=== PATIENT | male | born 1955 | race Caucasian/White ===

== ENCOUNTER → 2017-07-18 12:20 | Outpatient (CLI) | payer MEDICAID | END | disposition home or self-care (01) | LOC: D.CT 12:20 | DX: R10.30 Lower abdominal pain, unspecified (principal) ==

== ENCOUNTER → 2017-08-06 12:02 | Outpatient (CLI) | payer MEDICAID ==
[~2017-08-06 12:02] MED LIST: BAYER CHEWABLE81 MG PO; BENZTROPINE MESY2 MG PO; ELIQUIS5 MG PO; LEVEMIR100 U/M1 SC; MINIPRESS2 MG PO; ZOCOR20 MG PO
--- NOTE | 2017-08-15 12:47 | EC ---
PATIENT:TOBI STEWART DATE OF SERVICE: 08/06/17 SEX: M MEDICAL RECORD: [id number] DATE OF : 53 [facility] AGE OF PATIENT: 61 ADMISSION DATE: 08/06/17 REFERRING PHYSICIAN: INTERPRETING PHYSICIAN: BING ARORA MD ECHOCARDIOGRAM REPORT ECHO CHARGES 4 ECHO COMPLETE CLINICAL DIAGNOSIS: CAD/CHEST PAIN/PVD HX OF CAD/CABG ECHOCARDIOGRAPHIC MEASUREMENTS (adult normal given) AC root (d.<3.7cm) 3.5 cm LV Septum d (<1.2 cm> 1.1 cm Valve Excursion 1.2 cm LV Septum (systole) 1.3 cm Left Atria (s.<4.0cm> 3.8 cm LVPW d(<1.2cm) 1.1 cm RV (d.<2.3cm) 3.9 cm LVPW (sytole) 1.4 cm LV diastole(<5.6CM) 6.3 cm MV E-F(>70mm/sec) cm LV systole 4.6 cm LVOT Diameter 1.5 cm MV exc.(>10mm) 1.4 cm Est.ejection fraction (50-75%) % Pericardial Effusion N DOPPLER: LVIT cm/sec A 65.0 cm/sec E 79.0 cm/sec LA cm/sec RVSP 25 mmHg LVOT 94 cm/sec AOP1/2T m/s Asc. Ao 153 cm/sec RVOT 75 cm/sec RA cm/sec PA 102 cm/sec AV Gradient Peak 9.41 mmHg AV Mean 4.93 mmHg AV Area 1.5 cm MV Gradient Peak 2.99 mmHg MV Mean 1.32 mmHg MV Area cm COMMENTS: Criminal Lawyer: Judy FOX Management Advisor: 4 Dr. Arora TAPE# PACS DATE OF SERVICE: 08/06/2017 PROCEDURE: Transthoracic echocardiogram. FINDINGS: 1. Left ventricle shows evidence of mild concentric left ventricular hypertrophy with preserved LV systolic function. The inflow characteristics are normal. There are no significant regional wall motion abnormalities. 2. The mitral valve has mild mitral regurgitation. 3. The left atrium shown to be normal size, normal function. ECHOCARDIOGRAM REPORT [id number] TOBI STEWART 4. The aortic valve shows evidence of sclerosis without stenosis. 5. The tricuspid valve has mild tricuspid regurgitation with normal right ventricular systolic pressures. 6. The right atrium is normal size to mildly dilated, but normal function. 7. The right ventricle is mild to moderately enlarged. 8. The pulmonic valve is normal. 9. The pericardium is normal. No pericardial effusion. 10. The IVC is shown to be normal size and collapses appropriately indicating normal central venous pressure. TRANSINT:[id number] Voice Confirmation ID: [id number] DOCUMENT ID: [id number] BING ARORA MD at 1247 CC: [id number] DICTATION DATE: 08/06/17 1640 LIGHTNING ROD INSTALLER: 08/06/17 2228 DEP CLI 08/06/17 [facility] [address] [place] [address]
[2017-09-18 06:37] VITALS: BMI 21.4
== END | disposition home or self-care (01) ==
LOC: D.ECHO 12:02
DX: I65.23 Occlusion and stenosis of bilateral carotid arteries (principal)

== ENCOUNTER → 2017-08-12 07:18 | Outpatient (CLI) | payer MEDICAID ==
--- NOTE | 2017-08-15 12:47 | ST ---
PATIENT:TOBI STEWART MEDICAL RECORD: [id number] SEX: M LOCATION:[facility] ORDER #: ADMISSION DATE: 08/12/17 AGE OF PATIENT: 61 REFERRING PHYSICIAN: INTERPRETING PHYSICIAN: BING ARORA MD DATE OF SERVICE: 08/12/2017 PROCEDURE: Lexiscan stress test. PROCEDURE IN DETAIL: The patient was brought into the nuclear medicine department in a stable position, placed in the supine position on the nuclear table. The patient then had a standard Lexiscan injected. The patient tolerated the procedure without any specific complications or complaints. The patient had 12 mCi of sestamibi injected at rest and 31.9 mCi sestamibi injected at stress per usual protocol. The SPECT and gated images were reviewed and interpretable. The gated images showed complex wall motion abnormalities with an ejection fraction of 37%. The SPECT images showed inferior and lateral partially reversible ischemia that is moderate to severe in distribution and intensity. IMPRESSION: The patient has evidence of ischemic cardiomyopathy with a prior infarction that has partial reversibility, especially in the lateral component and a mostly fixed defect in the inferior component, angiography maybe helpful. TRANSINT:[id number] Voice Confirmation ID: [id number] DOCUMENT ID: [id number] BING ARORA MD at 1247 CC: [id number] DICTATION DATE: 08/13/17 1222 CRIMINAL JUDGE: 08/13/17 1229 DEP CLI 08/12/17 [facility] [address] [place] [address]
[2017-09-18 06:37] VITALS: BMI 21.4
== END | disposition home or self-care (01) ==
LOC: D.NM 07:18
DX: R07.9 Chest pain, unspecified (principal)

== ENCOUNTER → 2017-08-19 17:06 | Outpatient (CLI) | payer MEDICAID ==
[2017-08-19 18:51] LABS: CHOL - HDL RATIO 2.7 ratio (2.3-4.9); LDL-HDL RATIO 1.6 ratio (1.5-3.5)
[2017-09-18 06:37] VITALS: BMI 21.4
== END | disposition home or self-care (01) ==
LOC: D.LABREF 17:06
PROVIDERS: Internal Medicine Cardiovascular Disease
DX: E78.5 Hyperlipidemia, unspecified (principal)

== ENCOUNTER 2017-09-18 06:19 | Outpatient (CLI) | payer MEDICAID ==
[~2017-09-18] VITALS: Ht 175.3 cm; Wt 65.9 kg
--- NOTE | ~2017-09-18 | HEMODYNAMI ---
PATIENT:TOBI STEWART MEDICAL RECORD: [id number] : 53 LOCATION:[facility] ADMISSION DATE: 09/18/17 Generatedon:09/18/20179:58 Patient name: TOBI STEWART Patient #: [id number] SSN: : 1955 Date of study: 09/18/2017 Page: Of Hemodynamic Procedure Report Patient Data Patient Demographics Procedure consent was obtained First Name: TOBI Gender: Male Last Name: TERRY : 1955 [facility] Initial: DIANNE Age: 61 year(s) Patient #: [id number] Race: Unknown Additional ID: [id number] Contact details Address: [address] [place] [address] State: [place] City: [place] Zip code: [address] Past Medical History Allergies Allergen Reaction Date Comments Reported Iodine 09/18/2017 Admission Admission Data Admission Date: 09/18/2017 Admission Time: 6:19 Procedure Procedure Types Cath Procedure Diagnostic Procedure LHC LHC w/Coronaries w/Grafts PCI Procedure PTCA PTCA Initial Miscellaneous Procedures Moderate Sedation up to 15 minutes Procedure Description Procedure Date Procedure Date: 09/18/2017 Procedure Start Time: 9:06 Procedure End Time: 9:57 Procedure Staff Name Function Jacob Ribera MD Performing Physician [place] Cerrato RT Monitor Omaira Zaman RT Scrub Dayton Duffy RN Nurse Procedure Data Cath Procedure Fluoroscopy Diagnostic fluoroscopy Total fluoroscopy Time: time: 13.2 min 13.2 min Diagnostic fluoroscopy Total fluoroscopy dose: 739 dose: 739 mGy mGy Contrast Material Contrast Material Type Amount (ml) Isovue 300 124 Entry Location Entry Primary Successful Side Size Upsize Upsize Entry Closure Succes sful Closure Location (Fr) 1 (Fr) 2 (Fr) Remarks Device Remarks Femoral Right 5 Fr 6 Fr Exoseal artery Short Estimated blood loss: 10 ml Diagnostic catheters Device Type Used For End Catheter Placement Cordis 5Fr JL 4.0 Left Coronary Catheter (MP) Angiography Cordis 5Fr 3DRC Catheter Right Coronary (MP) Angiography Cordis 5Fr 3DRC Catheter SVG Angiography (MP) Cordis 5Fr 3DRC Catheter Internal mammary (MP) arteriography Cordis 5Fr Pigtail LV Angiography Catheter (MP) Cordis 5Fr Pigtail Abdominal Catheter (MP) aortogram with runoff Cordis 5Fr Pigtail Aortic Root Catheter (MP) Angiography Diagnostic Infinity 5Fr SVG Angiography AL 1 catheter Procedure Complications No complications Procedure Medications Medication Administration Route Dosage Oxygen NC 2 l/min Lidocaine 2% added to field 20 Heparin Flush Bag added to field 2 bags (1000units/500ml NS) 0.9% NaCl I.V. 100 ml/hr Versed I.V. 1 mg Angiomax (bolus) I.V. 9.9 ml Angiomax Drip I.V. drip 3.3 ml/hr (250mg/50ml NS) (Renal) Fentanyl I.V. 25 mcg Versed I.V. 1 mg Angiomax Drip 3.3 ml/hr (250mg/50ml NS) (Renal) Hemodynamics Rest Heart Rate: 77 (bpm) Pressure Samples Time Site Value (mmHg) Purpose Heart Use Rate(bpm) 9:26 LV 149/-7,8 EDP 80 Gradients Valve Time Site Site Mean SEP/DFP Peak To Heart Use 1 2 (mmHg) (sec/min) Peak Rate (mmHg) (bpm) Aortic 9:27 LV AO 37 Snapshots Pre Cath Intra NCS Post Cath Vital Signs Time Heart Resp SPO2 etCO2 NIBP (mmHg) Rhythm Pain Sedation Rate (ipm) (%) (mmHg) Status Level (bpm) 9:02:09 86 15 98 38.3 165/80(134) NSR 0 (11) 10(A) , No pain 9:06:49 79 17 98 36 150/87(129) NSR 0 (11) 10(A) , No pain 9:11:30 77 12 99 28.5 150/81(122) NSR 0 (11) 10(A) , No pain 9:16:06 77 16 99 37.5 138/81(113) NSR 0 (11) 10(A) , No pain 9:20:45 75 15 98 35.3 140/80(114) NSR 0 (11) 10(A) , No pain 9:25:22 80 13 99 41.3 135/81(109) NSR 0 (11) 10(A) , No pain 9:30:00 77 15 98 38.3 138/81(111) NSR 0 (11) 10(A) , No pain 9:34:39 77 16 98 36.8 143/82(119) NSR 0 (11) 10(A) , No pain 9:39:17 78 13 98 33.8 128/83(110) NSR 0 (11) 10(A) , No pain 9:43:54 76 13 97 40.5 135/76(110) NSR 0 (11) 10(A) , No pain 9:48:33 75 15 98 36 135/74(112) NSR 0 (11) 10(A) , No pain 9:53:09 79 14 98 30.8 137/74(114) NSR 0 (11) 10(A) , No pain 9:57:47 76 13 98 33 128/75(100) NSR 0 (11) 10(A) , No pain Medications Time Medication Route Dose Verified Delivered Reason Notes Effectiveness by by 9:01:22 Oxygen NC 2 Jacob Buffie used for l/min Bacilio Duffy RN procedure 9:01:33 Lidocaine 2% added to field 20ml Jacob Jacob for local vial Bacilio Ribera MD anesthetic 9:01:40 Heparin Flush added to field 2 Jacob Jacob used for Bag bags Bacilio Ribera MD procedure (1000units/500ml NS) 9:01:49 0.9% NaCl I.V. 100 Jacob Buffie Per physicia n ml/hr Bacilio Duffy RN, MD 9:06:55 Versed I.V. 1 mg Jacob Buffie for sedation Bacilio Duffy RN, MD 9:07:14 Fentanyl I.V. 25 Jacob Buffie for sedation mcg Bacilio Duffy RN, MD 9:39:38 Angiomax Drip I.V. drip 3.3 Jacob Buffie for renal (250mg/50ml NS) ml/hr Bacilio Duffy RN anticoagulation dose (Renal) 9:39:38 Angiomax (bolus) I.V. 9.9 Jacob Buffie for ml Bacilio Duffy RN anticoagulation 9:48:34 Versed I.V. 1 mg Jacob Buffie for sedation Bacilio Duffy RN, MD 9:51:05 Angiomax Drip I.V. 3.3 Jacob Burris for (250mg/50ml NS) drip-discontinued ml/hr Bacilio Duffy RN anticoagulation (Renal) Procedure Log Time Note 8:27:12 Dayton Duffy RN sent for patient. Start room use. 8:27:13 Time tracking: Regular hours 8:27:18 Plan of Care:Hemodynamics will remain stable., Cardiac rhythm will remain stable., Comfort level will be maintained., Respiratory function will remain adequate., Patient/ family verbilizes understanding of procedure., Procedure tolerated without complication., Recovers from procedure without complications.. 8:52:01 Patient received from Pre/Post Procedure Room to CCL 1 Alert and oriented. Tansferred to table in Supine position. 8:52:01 Warm blankets applied, and naomi hugger turned on for patient comfort. 8:52:02 Correct patient and procedure confirmed by team. 8:52:04 Signed procedure consent form obtained from patient. 8:52:05 ECG and BP/O2 sat monitors applied to patient. 9:01:13 Vital chart was started 9:01:16 Rhythm: sinus rhythm 9::18 Full Disclosure recording started 9:01:22 Oxygen 2 l/min NC was administered by Dayton Duffy RN; used for procedure; 9:01:33 Lidocaine 2% 20ml vial added to field was administered by Jacob Ribera MD; for local anesthetic; 9:01:40 Heparin Flush Bag (1000units/500ml NS) 2 bags added to field was administered by Jacob Ribera MD; used for procedure; 9:01:43 H&P Date Dictated: 08/27/2017 Within 30 days and on chart., H&P Addendum completed by physician on day of procedure. (MUST COMPLETE FOR ALL OUTPATIENTS). 9:01:45 Pre-procedure instructions explained to patient. 9:01:45 Pre-op teaching completed and patient verbalized understanding. 9:01:48 Family in waiting room. 9:01:49 0.9% NaCl 100 ml/hr I.V. was administered by Dayton Duffy RN; Per physician; 9:01:49 Patient NPO since Midnight. 9:01:56 Patient allergic to Iodine 9:02:00 Is the patient allergic to Iodine/contrast media? Yes. 9:02:01 Was the patient premedicated? Yes 9:02:03 Is patient on blood thinner?Yes 9:02:13 ACC The patient was administered the following blood thiners within the last 24 hours: ACCPlavix 9:02:15 Patient diabetic? No. 9:02:17 Previous problem with sedation/anesthesia? No ? 9:02:18 Snore? Yes 9:02:22 Sleep apnea? No 9:02:23 Deviated septum? No 9:02:24 Opens mouth fully? Yes 9:02:25 Sticks out tongue? Yes 9:02:27 Airway obstruction? No ? 9:02:28 Dentures? No ? 9:02:30 Patient diabetic? Yes. 9:02:31 If diabetic: On Metformin? No 9:02:45 Pre procedure: right dorsailis pedis pulse 2+ Normal; easily identifiable; not easily obliterated 9:02:48 Pre procedure: left dorsailis pedis pulse 1+ Palpable, but thready & weak; easily obliterated 9:02:50 Patient pain scale 0/10 ?. 9:02:54 IV patent on arrival in left hand with 0.9% NaCl at KVO. 9:02:57 Lab results completed and on chart. 9:02:59 Bilateral groins area was prepped with chlora-prep and draped in sterile fashion 9:03:00 Alarms reviewed by R. N. 9:03:01 Sharps counted by scrub and verified by R.N. 9:03:02 Final Timeout: patient, procedure, and site verified with staff and physician. All members of the team are in agreement. 9:03:05 Right groin site verified by team. 9:03:08 Physical assessment completed. ASA score P 2 - A patient with mild systemic disease as per Jacob Ribera MD. 9:03:11 Sedation plan: IV Moderate Sedation Medication:Versed, Fentanyl 9:03:15 Procedure started. 9:06:43 Local anesthetic to right femoral artery with Lidocaine 2% by Jacob Ribera MD.INITIAL ACCESS ONLY 9:06:45 Access obtained with 4Fr micropunture. 9:06:54 A 5 Fr sheath was inserted into the Right Femoral artery 9:06:55 Versed 1 mg I.V. was administered by Dayton Duffy RN; for sedation; 9:06:58 Zero performed for pressure channel P1 9:07:14 Fentanyl 25 mcg I.V. was administered by Dayton uDffy RN; for sedation; 9:07:48 Use device set Femoral Dx 9:07:49 Acist Syringe opened to sterile field. 9:07:49 Bag Decanter opened to sterile field. 9:07:50 Medline Cath Pack opened to sterile field. 9:07:50 Terumo 5Fr [place] Sheath opened to sterile field. 9:07:51 St Khadar 260cm J .035 wire opened to sterile field. 9:07:52 Acist Hand Control opened to sterile field. 9:07:52 Acist Manifold opened to sterile field. 9:07:52 Diagnostic Infinity 5Fr Multipack catheter opened to sterile field. 9:07:53 Tegaderm 4 x 4 opened to sterile field. 9:07:59 Cook 4Fr Micropuncture ([id number]) opened to sterile field. 9:08:58 Baseline sample Acquired. 9:09:04 A Cordis 5Fr JL 4.0 Catheter (MP) was advanced over the wire and used for Left Coronary Angiography. 9:09:16 Procedure type changed to Cath procedure, Diagnostic procedure, LHC, LHC w/Coronaries w/Grafts, PCI procedure, PTCA, PTCA Initial, Miscellaneous Procedures, Moderate Sedation up to 15 minutes 9:11:31 Catheter removed. 9:16:49 A Cordis 5Fr 3DRC Catheter (MP) was advanced over the wire and used for Right Coronary Angiography. 9:16:58 A Cordis 5Fr 3DRC Catheter (MP) was advanced over the wire and used for SVG Angiography.to Circ 9:17:19 A Cordis 5Fr 3DRC Catheter (MP) was advanced over the wire and used for Internal mammary arteriography.to LAD 9:21:00 Catheter removed. 9:24:35 Terumo 6Fr [place] Sheath opened to sterile field. 9:26:20 Sheath upsized to a 6 Fr Short. 9:26:38 A Cordis 5Fr Pigtail Catheter (MP) was advanced over the wire and used for LV Angiography. 9:27:16 LV gram done using NIXON 9:27:29 Injector settings: Ml/sec: 12, Volume: 8, 9:27:56 A Cordis 5Fr Pigtail Catheter (MP) was advanced over the wire and used for Abdominal aortogram with runoff. 9:28:31 A Cordis 5Fr Pigtail Catheter (MP) was advanced over the wire and used for Aortic Root Angiography. 9:28:50 Catheter removed. 9:29:40 A Diagnostic Infinity 5Fr AL 1 catheter was advanced over the wire and used for SVG Angiography. 9:33:22 Catheter removed. 9:36:14 6 Fr ART 3.5 SH guide catheter was inserted over the wire 9:37:50 Digital Performance BasixCompak Inflation Kit opened to sterile field. 9:37:50 BeanJockey BMW Marcola II J-Tip 190cm wire opened to sterile field. 9:37:51 Copilot Bleedback Control Valve opened to sterile field. 9:38:00 Skyword Runway 6Fr ART 3.5 SH guide catheter opened to sterile field. 9:38:37 BMW wire advanced. 9:39:38 Angiomax Drip (250mg/50ml NS) (Renal) 3.3 ml/hr I.V. drip was administered by Dayton Duffy RN; for anticoagulation; renal dose 9:39:38 Angiomax (bolus) 9.9 ml I.V. was administered by Dayton Duffy RN; for anticoagulation; 9:44:20 Wire removed. unable to cross lesion. 9:46:43 Miraclebros 4.5 300cm wire opened to sterile field. 9:46:54 Miraclebros wire advanced. 9:47:00 Wire removed. unable to cross lesion. 9:47:09 Guide Catheter removed. unable to get back-up support 9:47:24 6 Fr ART 4.0 SH guide catheter was inserted over the wire 9:48:19 Miraclebros wire advanced. 9:48:34 Versed 1 mg I.V. was administered by Dayton Duffy RN; for sedation; 9:50:36 Wire removed. 9:50:37 Guide catheter removed. 9:50:57 The Euphora 2.0 x 15 Balloon was advanced and then removed because it was opened but not used 9:51:05 Angiomax Drip (250mg/50ml NS) (Renal) 3.3 ml/hr I.V. drip-discontinued was administered by Dayton Duffy RN; for anticoagulation; 9:51:14 Sheath removed intact; hemostasis achieved with Exoseal to the Right Femoral artery. 9:51:16 Procedure ended.(Physican Out) 9:52:29 Fluoroscopy time 13.20 minutes. 9:52:32 Fluoroscopy dose: 739 mGy 9:52:32 Flurop Dose total: 739 9:52:35 Contrast amount:Isovue 300 124ml. 9:52:50 Sharps counted by scrub and verified by R.N. 9:52:51 Insertion/operative site no bleeding no hematoma. 9:52:55 Post-op/insertion site Right Femoral artery dressed using a 4 x 4 and Tegaderm. 9:52:58 Post right femoral artery:stable, clean and dry 9:53:00 Post Procedure Pulses reassessed and unchanged 9:53:02 Post-procedure physical assessment completed. ASA score P 2 - A patient with mild systemic disease as per Jacob Ribera MD. 9:53:04 Post procedure rhythm: unchanged. 9:53:07 Estimated blood loss: 10 ml 9:53:09 Post procedure instruction explained to patient.Patient verbalizes understanding. 9:53:09 Patient needs reinforcement of post procedure teaching. 9:53:14 Procedure Complication : No complications 9:53:19 See physician's report for complete and final results. 9:55:04 ATTEMPTED PCI RCA; UNABLE TO CROSS LEASION. PROCEDURE ABORTED. AFRO CANCELLED DUE TO ELEVATED CREATININE. 9:56:39 [place] Sci Runway 6Fr ART 4.0 SH guide catheter opened to sterile field. 9:56:57 Cordis 6Fr Exoseal opened to sterile field. 9:57:50 Procedure and supply charges have been captured, reviewed, submitted and are correct. 9:57:50 Vital chart was stopped 9:57:53 Report given to Pre/Post Procedure Room. 9:57:56 Patient transfered to Pre/Post Procedure Room with Stretcher. 9:57:58 Procedure ended. 9:57:58 Full Disclosure recording stopped 9:58:01 End room use (Document Last) Intervention Summary Intervention Notes Time ActionType Lesion and Equipment Action# Pressure Duration Attributes Used 9:50:57 Discard Euphora Balloon 2.0 x 15 Balloon Device Usage Item Name Manufacture Quantity Catalog Number Hospital Part Current Min imal Lot# / Charge Number Stock Stock Serial# Code Acist Syringe Acist 1 61114 [id number] 687379 203230 Fragegg Bag Decanter Microtek 1 2002S 296130 94547 609754 5 Medical Inc. Medline Cath Cardinal 1 [id number] 021453 15569 871462 5 Pack Health Terumo 5Fr Terumo 1 [id number] 378547 518809 217620 [address] Khadar 1 161084 203398 917115 846043 30 J .035 wire Acist Hand Acist 1 49393 862990 464898 021526 5 Control Medical Systems Inc Acist Acist 1 07920 736517 270514 172324 5 Manifold Medical Systems Inc Diagnostic Cardinal 1 [id number] 591463 77482 868774 30 Infinity 5Fr Health Multipack catheter Tegaderm 4 x 3M 1 1626W 649854 530606 803363 5 4 Cook 4Fr Cagenix 1 R49280 888559 660424 282509 5 Micropuncture ([id number]) Cordis 5Fr JL Cardinal 1 577108 5 4.0 Catheter Health (MP) Cordis 5Fr Cardinal 1 094976 5 3DRC Catheter Health (MP) Terumo 6Fr Terumo 1 RTQ175 654930 869930 800947 40 [place] Sheath Cordis 5Fr Cardinal 1 695855 5 Pigtail Health Catheter (MP) Diagnostic Cardinal 1 [id number] 946505 429101 584118 15 Infinity 5Fr Health AL 1 catheter Merit Merit 1 [id number] 068661 745500 867171 15 BasixCompak Medical Inflation Kit Herrera BMW Herrera 1 [id number] 343442 59504 721413 5 Marcola II Vascular J-Tip 190cm wire Copilot Herrera 1 [id number] 630725 443645 974783 5 Bleedback Vascular Control Valve [place] Sci [place] 1 [id number] 369089 165343 318302 [address] 6Fr Scientific ART 3.5 SH guide catheter Miraclebros Unknown 1 0 0 4.5 300cm wire Euphora 2.0 x Medtronic 1 [id number] 304853 310481 799036 5 [id number] 15 Balloon [place] Sci [place] 1 [id number] 111512 707877 996993 [address] 6Fr Scientific ART 4.0 SH guide catheter Cordis 6Fr Cardinal 1 EX600 424710 801774 866711 10 [facility] Health Signature Audit Delancey Stage Time Signature Unsigned Intra-Procedure 09/18/2017 [place] 9:58:19 AM Counts RT(R) Signatures Monitor : [place] Signature : Counts RT Date : Time : [address] [place] [address]
[2017-09-18 06:33] LABS: BASOPHILS 0 % (0-2); EOSINOPHILS 2.6 % (0-7); HEMATOCRIT 40.9 % (42.0-54.0); IMMATURE GRANULOCYTES 0.2 % (0-5); LYMPHOCYTES 26.5 % (15-50); MCH 30.8 pg (26.0-34.0); MCHC 34.2 g/dL (31.0-37.0); MCV 90.1 fL (80.0-100.0); MEAN PLATELET VOLUME 10.2 fL (7.4-10.4); MONOCYTES 6.7 % (2-11); RBC 4.54 10x6/uL (4.20-6.10); RDW 12.2 % (11.5-14.5); WBC 5.8 10x3/uL (4.8-10.8)
[2017-09-18 06:37] VITALS: BP 146/76; Ht 175.3 cm; Wt 65.9 kg
[2017-09-18 06:41] LABS: PLATELET COUNT 232 10x3/uL (130-400)
[2017-09-18] MEDS ORDERED: LEVEMIR100 U/M1 SC (06:48)
[2017-09-18] MEDS ORDERED: ELIQUIS5 MG PO (06:48)
[2017-09-18] MEDS ORDERED: MINIPRESS2 MG PO (06:48)
[2017-09-18] MEDS ORDERED: BENZTROPINE MESY2 MG PO (06:49)
[2017-09-18] MEDS ORDERED: ZOCOR20 MG PO (06:49)
[2017-09-18] MEDS ORDERED: BAYER CHEWABLE81 MG PO (06:49)
[2017-09-18 07:09] LABS: ANION GAP 14.7 mmol/L (8-16); CALCIUM 9.5 mg/dL (8.5-10.1); CARBON DIOXIDE 26.6 mmol/L (21.0-32.0); CREATININE - SERUM 1.6 mg/dL (0.6-1.3); POTASSIUM - SERUM 4.3 mmol/L (3.5-5.1)
--- NOTE | 2017-09-18 08:17 | NUR ---
0715 TC FROM LAB REPORTED CRITICAL GLUCOSE OF 767. 0717 SPOKE WITH PT REGARDING INSULIN. PT STATES "i'M SUPPOSED TO TAKE MY INUSLIN EVERY DAY BUT I DON'T DO IT." ASKED WHEN HE HAD TAKEN HIS LEVEMIR LAST AND PT STATES 'i THINK IT WAS ABOUT A WEEK AGO'. STATES HE DOES NOT CHECK GLUCOSE LEVELS AT HOME REGULARLY. PAGED DR ARORA. 7050 DR ARORA HERE, INFORMED OF ABOVE AND NEW ORDER RECEIVED.
--- NOTE | 2017-09-18 08:35 | NUR ---
DR ARORA HERE, REPEAT GLUCOSE LEVEL IS 471. ORDER RECEIVED FOR MUCOMYST 600 MG PO NOW. ORDER ENTERED INTO COMPUTER AND PHARMACY NOTIFIED.
--- NOTE | 2017-09-18 11:58 | NUR ---
1015 LYING FLAT, NSR RATE 82 W NO C/O CHEST PAIN. PULSES PALP X4. R GROIN REMAINS C/D/I W NO HEMATOMA OR BLEEDING. FAMILY AT BEDSIDE.
--- NOTE | 2017-09-18 12:02 | NUR ---
1045 REMAINS FLAT, ROOM AIR WITH ALL VITALS WNL. R GROIN C/D/I NO HEMATOMA OR BLEEDING. 1145 AWAKE, SIPPING WATER WITH NO NAUSEA. R GROIN REMAINS C/D/I.
--- NOTE | 2017-09-18 14:04 | NUR ---
1300 HOB ELEVATED TO 30DEGREES, R GROIN REMAINS C/D/I W NO HEMATOMA OR BLEEDING. 1405 HOB ELEVATED, EATING TURKEY SANDWICH. VOIDED 200CC VIA URINAL.
--- NOTE | 2017-09-18 14:53 | NUR ---
PIV REMOVED FROM LEFT FOREARM WITH BANDAID APPLIED. R GROIN REMAINS C/D/I W NO HEMATOMA OR BLEEDING. UP TO BEDSIDE TO DRESS.
--- NOTE | 2017-09-18 15:05 | NUR ---
D/C INSTRUCTIONS DISCUSSED WITH PATIENT AND AT BEDSIDE. WHEELED OUT VIA HWEELCHAIR BY CATH TEAM.
== END 2017-09-18 15:06 | disposition home or self-care (01) ==
LOC: D.CATH 06:19
PROVIDERS: Internal Medicine Cardiovascular Disease
DX: I25.10 Atherosclerotic heart disease of native coronary artery without angina pectoris (principal); I25.810 Atherosclerosis of coronary artery bypass graft(s) without angina pectoris; I25.5 Ischemic cardiomyopathy; Z01.812 Encounter for preprocedural laboratory examination